=== PATIENT | female | born 1985 ===

== ENCOUNTER 2017-10-18 20:20 | Emergency (ER) | payer OTHER ==
[~2017-10-18] VITALS: Ht 167.6 cm; Wt 111.6 kg
[2017-10-18] MEDS ORDERED: PRENA1 CHEW TA1.4 MG PO (20:47)
[2017-10-19] MEDS ORDERED: KEFLEX500 MG PO (01:18)
== END 2017-10-19 01:10 | disposition home or self-care (01) ==
LOC: ER 20:20
DX: N39.0 Urinary tract infection, site not specified (principal)

== ENCOUNTER 2018-02-22 13:16 | Inpatient (IN) | payer OTHER ==
[~2018-02-22] VITALS: Ht 172.7 cm; Wt 4.1 kg
[~2018-02-22 13:16] MED LIST: KEFLEX500 MG PO; PRENA1 CHEW TA1.4 MG PO
[2018-02-22] MEDS ORDERED: [UNRECOGNIZED DRUG - OTHER] (14:00)
== END 2018-03-10 12:13 | DRG 766 ==
LOC: LDR 03-07 07:00 → SURG-SUITE 03-07 07:05 → O/R 03-07 07:05 → LDR 03-07 13:16 → SURG-SUITE 03-07 19:33
PROVIDERS: Specialist
PROC: 4A033R1 Measurement of Arterial Saturation, Peripheral, Percutaneous Approach (ICD-10-PCS; 2018-03-07)
PROC: 4A1HXCZ Monitoring of Products of Conception, Cardiac Rate, External Approach (ICD-10-PCS; 2018-03-07)
PROC: 10D00Z1 Extraction of Products of Conception, Low, Open Approach (ICD-10-PCS; principal; 2018-03-07 07:00)
DX: O65.5 Obstructed labor due to abnormality of maternal pelvic organs (principal); O34.211 Maternal care for low transverse scar from previous cesarean delivery; Z3A.39 39 weeks gestation of pregnancy; Z37.0 Single live birth